=== PATIENT | female | born 1950 | race Caucasian/White ===

== ENCOUNTER 2017-07-18 10:00 | Emergency (ER) | payer BC ==
[~2017-07-18] VITALS: Ht 165.1 cm; Wt 80.0 kg
[~2017-07-18 10:00] MED LIST: LEVO.1 PO; METO25CR PO; RIVA20 PO
[2017-07-18 10:04] VITALS: BP 191/87; PULSE 67; RESP 16; TEMP 98.3; O2SAT 96
[2017-07-18] MEDS ORDERED: SODIUM CHLOR 0.9% 1000 ML INJ 1,000 ML IV ONE (10:16)
[2017-07-18 10:23] VITALS: BP 177/104; PULSE 69; RESP 18; O2SAT 100
[2017-07-18] MEDS ORDERED: SYNT25TA PO (10:29)
[2017-07-18] MEDS ORDERED: METO25TA6 PO (10:29)
[2017-07-18] MEDS ORDERED: APIX5TAB PO (10:29)
[2017-07-18] MEDS ORDERED: METO50TA11 PO (10:29)
[2017-07-18] MEDS ORDERED: diphenhydrAMINE HCL 50 MG/ML VIAL IV PUSH ONE (10:30)
[2017-07-18] MEDS ORDERED: SODIUM CHLORIDE 0.9% FLUSH 10 ML FLUSH IVF PRN (10:30)
[2017-07-18] MEDS ORDERED: PROCHLORPERAZINE INJ 10 MG/2 ML VIAL IV PUSH ONE (10:30)
--- NOTE | 2017-07-18 10:38 | PD ---
HPI . Dizziness Chief Complaint: Dizziness Time Seen by Provider: 10:10 Travel History International Travel<30 days: No Contact w/Intl Traveler<30days: No Traveled to known affect area: No History of Present Illness HPI This patient presents with a chief complaint of dizziness. Onset this morning. She states that it feels like she's on a boat. Dizziness is exacerbated by movement and by bending over. Symptoms are relieved by being still. Symptoms are mild. She further reports one episode of diarrhea and some nausea. She denies fever. She denies any urinary tract symptoms. She does not have a headache. In addition to the dizziness, the patient is complaining with some sinus congestion. She has had that for the last several days. She states that her ears feel full and she's got some postnasal drip. She has noticed that her symptoms are exacerbated by lying flat and improved by sitting up. Her dizziness is also exacerbated by lying flat. PFSH Past Medical History Atrial Fibrillation: Yes Heart Rhythm Problems: Yes Cardiac Catheterization: No High Cholesterol: No Congestive Heart Failure: No Diabetes: No Hypertension: Yes Menopausal: Yes : 2 Para: 2 Past Surgical History Coronary Artery Bypass Graft: No Social History Alcohol Use: Yes (WINE DAILY) Tobacco Use: No Substance Use: No Allergies-Medications (Allergen,Severity, Reaction): Coded Allergies: Sulfa (Sulfonamide Antibiotics) (Unverified Allergy, Severe, Rash, 06/02/17 ) Reported Meds & Prescriptions Reported Meds & Active Scripts Active Reported Synthroid (Levothyroxine Sodium) 25 Mcg Tab 25 Mcg PO DAILY Eliquis (Apixaban) 5 Mg Tab 5 Mg PO BID Metoprolol Succinate ER 24 HR (Metoprolol Succinate) 50 Mg Tab 50 Mg PO DAILY Review of Systems Except as stated in HPI: all other systems reviewed are Neg General / Constitutional: No: Fever, Chills Eyes: No: Diploplia, Blurred Vision HENT: Positive: Vertigo, Congestion, Earache, No: Headaches Cardiovascular: No: Chest Pain or Discomfort Respiratory: No: Shortness of Breath Gastrointestinal: Positive: Nausea, Diarrhea, No: Vomiting, Abdominal Pain Genitourinary: No: Urgency, Frequency, Dysuria Neurologic: Positive: Dizziness, No: Headache Physical Exam Narrative GENERAL: Patient is awake and alert and does not appear to be in any acute distress. SKIN: warm/dry. No rashes or lesions. HEAD: Normocephalic. Atraumatic. EYES: Pupils equal and round. No scleral icterus. No injection or drainage. ENT: No nasal bleeding or discharge. Mucous membranes pink and moist. Sinuses are nontender to percussion. Oropharynx has postnasal drip. TMs are both shiny allison with good light reflexes. NECK: Trachea midline. Full range of motion without pain.. No cervical lymphadenopathy. CARDIOVASCULAR: Regular rate and rhythm. Heart sounds are normal. RESPIRATORY: No accessory muscle use. Clear to auscultation. Breath sounds equal bilaterally. GASTROINTESTINAL: Abdomen soft. Nontender. Bowel sounds present. Nondistended. MUSCULOSKELETAL: No obvious deformities. NEUROLOGICAL: Awake and alert. No obvious cranial nerve deficits. Motor grossly within normal limits. Normal speech. Normal [id number]-[id number] exam. PSYCHIATRIC: Appropriate mood and affect; insight and judgment normal. Data Data Last Documented VS Vital Signs Date Time Temp Pulse Resp B/P (MAP) Pulse Ox O2 Delivery O2 Flow Rate FiO2 07/18/17 10:23 69 18 177/104 (128) 100 Room Air 07/18/17 10:04 98.3 Orders Orders Complete Blood Count With Diff (07/18/17 10:16) Basic Metabolic Panel (Bmp) (07/18/17 10:16) Iv Access Insert/Monitor (07/18/17 10:16) Sodium Chlor 0.9% 1000 Ml Inj (Ns 1000 M (07/18/17 10:16) Sodium Chloride 0.9% Flush (Ns Flush) (07/18/17 10:30) Ct Brain W/O Iv Contrast(Rout) (07/18/17 10:16) Prochlorperazine Inj (Compazine Inj) (07/18/17 10:30) Diphenhydramine Inj (Benadryl Inj) (07/18/17 10:30) Labs Laboratory Tests Test 07/18/17 10:30 White Blood Count 6.9 TH/MM3 Red Blood Count 4.52 MIL/MM3 Hemoglobin 14.5 GM/DL Hematocrit 42.5 % Mean Corpuscular Volume 94.1 FL Mean Corpuscular Hemoglobin 32.1 PG Mean Corpuscular Hemoglobin Concent 34.1 % Red Cell Distribution Width 13.6 % Platelet Count 201 TH/MM3 Mean Platelet Volume 10.1 FL Neutrophils (%) (Auto) 70.5 % Lymphocytes (%) (Auto) 20.6 % Monocytes (%) (Auto) 6.1 % Eosinophils (%) (Auto) 2.1 % Basophils (%) (Auto) 0.7 % Neutrophils # (Auto) 4.8 TH/MM3 Lymphocytes # (Auto) 1.4 TH/MM3 Monocytes # (Auto) 0.4 TH/MM3 Eosinophils # (Auto) 0.1 TH/MM3 Basophils # (Auto) 0.0 TH/MM3 CBC Comment DIFF FINAL Differential Comment Blood Urea Nitrogen 18 MG/DL Creatinine 0.76 MG/DL Random Glucose 113 MG/DL Calcium Level 8.8 MG/DL Sodium Level 138 MEQ/L Potassium Level 3.7 MEQ/L Chloride Level 107 MEQ/L Carbon Dioxide Level 25.8 MEQ/L Anion Gap 5 MEQ/L Estimat Glomerular Filtration Rate 76 ML/MIN MDM Medical Decision Making Medical Screen Exam Complete: Yes Emergency Medical Condition: Yes Interpretation(s) EKG shows atrial fibrillation with a controlled ventricular response. No ST segment elevation or depression. Differential Diagnosis Differential diagnosis of dizziness includes but is not limited to vertigo, dehydration, acute blood loss, sepsis, ACS Narrative Course This patient presents with a chief complaint of dizziness which she describes as vertigo. She will be treated with Compazine and Benadryl. CBC & BMP Diagram 07/18/17 10:[address] head is normal Diagnosis Primary Impression: Dizziness Additional Impressions: Paroxysmal a-fib Congestion of both ears Congestion of nasal sinus Patient Instructions: Dizziness (ED), General Instructions Additional Instructions: I recommend the use of a Neti Pot. You may use a nasal spray such as Afrin for up to 3 days as needed for nasal congestion. You may take an [id number] antihistamine such as Zyrtec, Susan or Claritin as needed for runny secretions. You may take pseudoephedrine as needed for congestion. You will need to sign for this at the pharmacy. You may take plain Mucinex, 1200 mg twice a day as needed for thick secretions. You may take a cough syrup such as Delsym as needed for cough. Motrin as needed for fever and body aches. Throat lozenges/sprays as needed for sore throat. Warm salt water gargles for sore throat. Hot tea with lemon and honey also helps soothe a sore throat. Disposition: 01 DISCHARGE HOME Condition: Stable Mayra Romero MD Jul 18, 2017 10:38
[2017-07-18 10:53] LABS: AUTOMATED NEUTROPHIL # 4.8 TH/MM3 (1.8-7.7); BASOPHIL % 0.7 % (0.0-2.0); EOSINOPHIL # 0.1 TH/MM3 (0-0.4); EOSINOPHIL % 2.1 % (0.0-4.0); HEMATOCRIT 42.5 % (35.0-46.0); HEMO FLAGS DIFF FINAL; LYMPH % 20.6 % (9.0-44.0); LYMPHOCYTE # 1.4 TH/MM3 (1.0-4.8); MEAN CELL VOLUME 94.1 FL (80.0-100.0); MEAN CORPUSCULAR HEMOGLOBIN 32.1 PG (27.0-34.0); MEAN CORPUSCULAR HGB CONC 34.1 % (32.0-36.0); MONO % 6.1 % (0.0-8.0); NEUT % 70.5 % (16.0-70.0); PLATELET COUNT 201 TH/MM3 (150-450); RED BLOOD COUNT 4.52 MIL/MM3 (4.00-5.30); RED CELL DISTRIBUTION WIDTH 13.6 % (11.6-17.2); WHITE BLOOD COUNT 6.9 TH/MM3 (4.0-11.0)
[2017-07-18 11:08] LABS: BICARBONATE 25.8 MEQ/L (21.0-32.0); POTASSIUM 3.7 MEQ/L (3.5-5.1)
--- NOTE | 2017-07-18 12:09 | RADRPT ---
EXAM DATE/TIME: 07/18/2017 11:13 [facility] COMPARISON: No previous studies available for comparison. INDICATIONS : Dizziness. RADIATION DOSE: 28.63 CTDIvol (mGy) MEDICAL HISTORY : Hypertension. Cardiovascular disease SURGICAL HISTORY : None. ENCOUNTER: Initial ACUITY: 2 days PAIN SCALE: 1/10 LOCATION: cranial TECHNIQUE: Multiple contiguous axial images were obtained of the head. Using automated exposure control and adj ustment of the mA and/or kV according to patient size, radiation dose was kept as low as reasonably a chievable to obtain optimal diagnostic quality images. DICOM format image data is available electro nically for review and comparison. FINDINGS: CEREBRUM: The ventricles are normal for age. No evidence of midline shift, mass lesion, hemorrhage or acute in farction. No extra-axial fluid collections are seen. POSTERIOR FOSSA: The cerebellum and brainstem are intact. The 4th ventricle is midline. The cerebellopontine angle i s unremarkable. EXTRACRANIAL: The visualized portion of the orbits is intact. SKULL: The calvaria is intact. No evidence of skull fracture. CONCLUSION: Normal examination. Chela Mcmillan MD on July 18, 2017 at 12:07 Board Certified Radiologist. This report was verified electronically.
[2017-07-18 13:17] VITALS: BP 166/83; PULSE 81; RESP 18; O2SAT 99
== END 2017-07-18 14:00 | disposition home or self-care (01) ==
LOC: NEPC 10:00
DX: R42 Dizziness and giddiness (principal); I48.0 Paroxysmal atrial fibrillation; H83.8X3 Other specified diseases of inner ear, bilateral; R09.81 Nasal congestion; R11.0 Nausea; R19.7 Diarrhea, unspecified; I10 Essential (primary) hypertension; Z79.899 Other long term (current) drug therapy; Z88.2 Allergy status to sulfonamides
CPT/HCPCS: 70450; 80048; 85025; 96361; 96374; 99285; J1200; J7030